=== PATIENT | female | born 1955 | race Caucasian/White ===

== ENCOUNTER 2017-06-23 13:56 | Emergency (ER) | payer OTHER ==
[~2017-06-23] VITALS: Ht 154.9 cm; Wt 65.2 kg
[~2017-06-23 13:56] MED LIST: ZYRTEC10 MG PO
[2017-06-23 14:59] LABS: HEMATOCRIT 48.8 % (36.0-46.0); MCH 30.5 PG (29.0-34.0); MCHC 32.8 G/DL (30.0-36.0); MEAN PLAT.VOLUME 9.2 uM^3 (9.5-12.4); PLATELET COUNT 198 K/uL (156-360); RBC DIS.WIDTH-CV 12.5 % (11.8-14.6); RBC DIS.WIDTH-SD 43.1 % (39-53); RED BLOOD COUNT 5.25 M/uL (3.80-5.20); WHITE BLOOD COUNT 5.4 K/uL (4.1-10.2)
[2017-06-23 15:13] LABS: CHLORIDE 104 mEq/L (99-109); POTASSIUM 3.9 mEq/L (3.7-5.4); SODIUM 141 mEq/L (136-147)
[2017-06-23 15:15] LABS: GLUCOSE 135 mg/dL (70-99)
[2017-06-23 15:16] LABS: ANION GAP 10 MEQ/L (2-14)
[2017-06-23 15:18] LABS: TROP-I INTERPRETATION NEGATIVE; TROPONIN-I < 0.01 ng/mL (0.0-0.30)
[2017-06-23 15:19] LABS: GFR ESTIMATE (CALCULATED) > 59 mL/min/; UREA NITROGEN (BUN) 13 mg/dL (9-23)
[2017-06-23 17:14] LABS: TROP-I INTERPRETATION NEGATIVE; TROPONIN-I < 0.01 ng/mL (0.0-0.30)
[2017-06-23 17:39] LABS: D-DIMER ELISA < 150.00 ng/mLDDU (<230)
[2017-06-23 18:46] VITALS: BP 150/93
== END 2017-06-23 18:46 | disposition home or self-care (01) ==
LOC: EME 13:56
PROVIDERS: Emergency Medicine
DX: R07.9 Chest pain, unspecified (principal); J45.909 Unspecified asthma, uncomplicated; R73.03 Prediabetes
CPT/HCPCS: 71020; 80048; 84484; 85027; 85379; 93005; 99281; 99284